=== PATIENT | female | born 1945 | race Caucasian/White ===

== ENCOUNTER → 2016-12-29 | Outpatient (CLI) | payer MEDICARE, BC ==
[~2016-12-29] MED LIST: ASPIRIN81 M1 PO; AUGMENTIN PO; BACLOFEN10 MG PO; BENZONATATE200 M1 PO; CRESTOR PO; DULERA 100 MCG/13 GM; FISH OIL 1,2001 CAP PO; GLUCOPHAGE500 M1 PO; HYDROMET SYRUP480 ML PO; LEVAQUIN; LEVAQUIN PO; MEDROL4 MG/DOSE- PO; MOBIC PO; PERCOCET 5-3251 TAB PO; PLAVIX PO; PROAIR HFA8.5 GM INH; TOPROL XL PO; TYLENOL #3 PO; VICODIN ES 7.51 EACH PO; VYTORIN 10-40 M1 TAB PO
--- NOTE | ~2016-12-29 | CT113 ---
[facility] A Service of [facility] RADIOLOGY TEXT RESULTS PATIENT: URI SERNA LOCATION: [facility] : 47 UNIT #: [id number] AGE: [address]: Mary Barnes MD SEX: F ORDER DR: [id number] [address] [id number] O MR#: [id number] Acc #: [id number] NAME: URI SERNA : 1945 SEX: F STUDY DATE/TIME: 12/29/2016 08:25 UNIT: [facility] ROOM: STUDY DESCRIPTION: CT Sinuses Wo Contrast Attending Physician: Mary Barnes M.D. Referring Physician: Mary Barnes M.D. Ordering Physician: Mary Barnes M.D. Primary Care Physician: Mary Barnes M.D. MEDICAL IMAGING REPORT This report is preliminary unless electronic signature is present. EXAM CT sinuses without contrast, 12/29/2016 0825 hours HISTORY 71-year-old woman with history of chronic sinusitis complaining of 1-week history of severe sinus congestion, blockage and drainage. Evaluate for acute sinusitis. COMPARISON None. TECHNIQUE Thin-cut axial noncontrasted images were obtained through the paranasal sinuses. Sagittal and coronal reconstructions were performed. Total exam DLP 287 mGy-cm. This CT exam was performed with one or more of the following radiation dose reduction techniques: Automatic exposure control, adjustment of mA and/or kV according to patient size, and iterative reconstruction. FINDINGS The frontal sinuses demonstrate minimal, smooth, circumferential mucosal thickening in the left frontal sinus, with clear right frontal sinus. No obstruction seen. There is partial opacification of the ethmoid air cells, anteriorly. The maxillary sinuses demonstrate trace mucosal thickening on the floor of the left maxillary sinus only. The ostia are mildly narrowed, but not occluded. There is no evidence of sphenoid sinus disease. The nasal septum bows mildly to the right. There is no significant thickening along the nasal turbinates. There is no nasal obstruction. IMPRESSION 1. There is only trace mucosal thickening in the left frontal sinus and STS. [facility] A Service of [facility] RADIOLOGY TEXT RESULTS PATIENT: URI SERNA LOCATION: [facility] : 47 UNIT #: [id number] AGE: [address]: Mary Barnes MD SEX: F ORDER DR: left maxillary sinus with no polyps, obstruction of the maxillary sinuses. There is minimal opacification of the anterior ethmoid air cells bilaterally. 2. Nasal septum bows minimally to the right. The nasal turbinates do not demonstrate any thickening and there is no nasal obstruction. Dictated by... Deloris Zhang M.D. THIS IS AN ELECTRONICALLY VERIFIED REPORT Deloris Zhang M.D. at 12/29/2016 2:31 PM ERASMO/cassandra TD: 12/29/2016 10:45 JOB #: [id number] MEDICAL IMAGING REPORT Page 1 of 1
== END | disposition home or self-care (01) ==
LOC: SCT 08:04
DX: J32.9 Chronic sinusitis, unspecified (principal)
CPT/HCPCS: 70486